=== PATIENT | female | born 1955 | race Caucasian/White ===

== ENCOUNTER 2017-07-13 09:21 | Outpatient (RCR) | payer MEDICARE, BC ==
[2017-05-03 09:17] VITALS: BP 130/84
[2017-05-03] MEDS: LIDOCAINE/SOD BICARB 8.4% SYR ID PRN (09:28)
[2017-05-03] MEDS: NS(*) 0.9% 100 ML BAG 100 ML IVPB PRN (09:28)
[2017-05-03 09:37] LABS: PLATELET COUNT, AUTOMATED 216 K/uL (150-450)
[2017-06-01 11:00] VITALS: BP 176/87
[2017-06-01 11:26] LABS: PLATELET COUNT, AUTOMATED 221 K/uL (150-450)
[2017-06-01] MEDS: LIDOCAINE/SOD BICARB 8.4% SYR ID PRN (11:27)
[2017-06-01] MEDS: NS(*) 0.9% 100 ML BAG 100 ML IVPB PRN (11:28)
[2017-06-29] MEDS: NS(*) 0.9% 100 ML BAG 100 ML IVPB PRN (09:12)
[2017-06-29] MEDS: LIDOCAINE/SOD BICARB 8.4% SYR ID PRN (09:12)
[2017-06-29 09:27] LABS: PLATELET COUNT, AUTOMATED 228 K/uL (150-450)
[2017-06-29 09:28] VITALS: BP 135/80
[2017-07-06 08:38] VITALS: BP 146/86
[2017-07-06 08:40] LABS: PLATELET COUNT, AUTOMATED 200 K/uL (150-450)
[~2017-07-13] VITALS: Ht 160 cm; Wt 57.7 kg
[~2017-07-13 09:21] MED LIST: ABA250I IVPB; ABATACEPT 250 MG SDV 750 MG in NS(*) 0.9% 100 ML BAG 100 ML IVPB ONE; ACT PO; AMIT75TA42 PO; AMLO-98 PO; ASPI-715 PO; BENACAR PO; CALC-756 PO; CALCIUM CITRATE PO; CLON-327 PO; CLON1PAT19 PO; DEXTROSE 5%(*) 100 ML BAG 100 ML IVPB PRN; DOXA1TAB38 PO; EFFEXOR; EPIN0.3P14 IM; EPIN0.3P15 IM; FOL1 PO; FOLI0.4T56 PO; FOLIC ACID; FURO-45 PO; FURO20TA19 PO; GLUC750T10 PO; IPRA4AER IH; LAMI1TAB PO; LIS20 PO; LORA-629 PO; LORA10TA2 PO; MELO-149 PO; MET1000I IJ; METF-420 PO; METHOTREX; MOMR; MON10 PO; MULT-1 PO; MULT1TAB54 PO; NEBI20TA4 PO; OLME40TA17 PO; PRE10 PO; PRE20 PO; PRE5 PO; PRED-420 PO; PRED1DRO2 OP; RAN150 PO; TRAM-420 PO; VENL150C61 PO; VITA1CAP46 PO; [UNRECOGNIZED DRUG - CODE] PO; [UNRECOGNIZED DRUG - CODE] PO
[2017-07-13 09:28] VITALS: BP 127/76
--- NOTE | 2017-07-13 17:19 | ONCOLOGY FOLLOW UP NOTE ---
EVENT DATE: July 13, 2017 DIAGNOSES 1. Iron deficiency anemia. 2. Iron malabsorption due to gastric bypass surgery. 3. Hypertension. 4. Rheumatoid arthritis. 5. Asthma. 6. Depression. CHIEF COMPLAINT The patient is here today for followup of her iron deficiency anemia due to iron malabsorption after gastric bypass surgery. HEMATOLOGY HISTORY Genie Montiel is a 61-year-old female with a history of Rheumatoid arthritis and treatment with weekly methotrexate and Rituximab twice yearly. She also has a history of gastric bypass surgery done in 2000. Patient was found to have microcytic anemia. Her CBC on October 23, 2012 revealed normal white blood cell and platelets, but hemoglobin was 10.1 and hematocrit 32.7. MCV was 77.7. Her vitamin B12 level was high at 2,576 and folate level was also high, more than 48. Serum ferritin was low at 6, serum iron was 32, and TIBC was 445 with iron saturation of 7.2%. Patient received intravenous iron supplement in the form of Ferrlecit 125 mg weekly for 8 weeks with normalization of her iron studies. HISTORY OF PRESENT ILLNESS Patient is here today for followup of her iron deficiency anemia due to malabsorption from gastric bypass surgery. She is complaining of joint pains all over, which is chronic for her. She has also neuropathy with tingling and numbness in the hands and feet. Other than that she is really doing very well. PAST MEDICAL HISTORY 1. Hypertension 2. Rheumatoid arthritis, since 2000 3. Anemia 4. Asthma PAST SURGICAL HISTORY 1. Gastric bypass surgery, 2000 2. Carpal tunnel release, bilaterally 3. Tonsillectomy, as a child 4. Left hand surgery SOCIAL HISTORY Patient is with children. 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 No abuse of drugs, alcohol, or tobacco. FAMILY HISTORY Father with colon cancer at age of 73. Mother had melanoma. CURRENT MEDICATIONS 1. Tramadol 50 mg one to two tablets every four to six hours p.r.n. for pain. 2. Methotrexate 60 gm injection once a week. 3. Prednisone 20 mg daily. 4. Bystolic 40 mg daily. 5. Multivitamins one tablet daily. 6. Vitamin D one capsule daily. 7. Loratadine 10 mg daily. 8. Doxazosin 2 mg daily. 9. Clonidine 1 mg daily, four daily. 10. Lasix 10 mg daily. 11. Salicylate 750 mg twice daily. 12. Calcium citrate 200 mg daily. 13. Folic acid 1 mg daily. 14. Effexor XR 225 mg orally daily. 15. Epinephrine 0.3 mg syringe pen injection p.r.n. 16. Elavil 75 mg daily. 17. Pred Forte eye drops twice daily. 18. Lasix 20 mg daily. 19. Metformin 1000 mg twice daily. 20. Orencia IV. ALLERGIES AMOXICILLIN, CAUSES ITCH AND RASH BENICAR, CAUSES ANAPHYLAXIS LISINOPRIL, CAUSES ANAPHYLAXIS MORPHINE, CAUSES ITCH AND RASH NAPROXEN, CAUSES ITCH AND RASH SULFA, CAUSES ITCH AND RASH TYLENOL, CAUSES ITCH AND RASH ENBREL, CAUSES ITCH AND RASH REVIEW OF SYSTEMS CONSTITUTIONAL: No appetite or weight change. No fever, chills or sweating. No recent infection. HEENT: Ears: No tinnitus or hearing problem. Nose: No nasal discharge or epistaxis. Throat: No sore throat or mouth ulcers. Eyes: No diplopia or visual changes. RESPIRATORY: No shortness of breath. No cough, expectoration or hemoptysis. CARDIOVASCULAR: No chest pain, orthopnea, or paroxysmal nocturnal dyspnea (PND) . No edema. No palpitations. GASTROINTESTINAL: No nausea or vomiting. No diarrhea or constipation. No change in bowel movements. No heartburn or swallowing difficulties. No abdominal pain. No jaundice. No hematemesis, melena or rectal bleeding. GENITOURINARY: No hematuria or dysuria. MUSCULOSKELETAL: The patient has generalized joint pains. NEUROLOGICAL: She has tingling and numbness in the hands and feet. HEMATOLOGIC/LYMPHATIC: She is weak, tired and fatigued. SKIN: No skin rash or lumps. PSYCHIATRIC: No anxiety or depression. PHYSICAL EXAMINATION GENERAL: Well-developed female in no acute distress. VITAL SIGNS: Blood pressure 127/76, pulse 74 per minute, respirations 16 per minute, temperature 97.2, pulse ox 95% on room air. HEENT: Head: Atraumatic. No sinus tenderness to palpation. Eyes: No icterus or conjunctivitis. Mouth and throat: No oral thrush or mucositis. NECK: Supple. No cervical or supraclavicular lymphadenopathy. LUNGS: Clear to auscultation and percussion bilaterally. HEART: Regular rate and rhythm. No gallops, murmurs, clicks, or rubs. ABDOMEN: Soft and lax. No tenderness. No hepatosplenomegaly. No masses. EXTREMITIES: No cyanosis, clubbing, or edema. LYMPHATICS: No peripheral lymphadenopathy. NEUROLOGICAL: Conscious, alert, and oriented times three. No focal motor or sensory deficits. PSYCHIATRIC: Mood and affect appear normal. SKIN: No skin rash, bruise, or purpuric eruption. DIAGNOSTIC DATA CBC shows white count 5.8, hemoglobin 13.1, hematocrit 38.3, platelets 200,000. Ferritin is 279. Serum iron is 84, TIBC is 238, iron saturation 35.3%. ASSESSMENT 1. Iron deficiency anemia secondary to iron malabsorption from gastric bypass surgery. Patient received iron supplementation in the past in the form of Ferrlecit and she did fine with that, did not have a reaction. In December 2016, she had Injectafer weekly for two weeks, but she developed light pharyngeal obstruction with her treatment, but patient has had very good response to the treatment. Her current iron studies are really very good. I am planning to see her again in four months with CBC, iron studies with ferritin, and if the patient would need iron supplementation in the future, I will use Ferrlecit rather than Injectafer. 2. Iron malabsorption due to gastric bypass surgery. 3. Hypertension on treatment. 4. Rheumatoid arthritis since 2000. 5. Depression on treatment. PLAN 1. Continue followup. 2. Patient is to return in four months with CBC and iron studies with ferritin. 4. Patient is to contact us for any new concerns or complaints. GUTH[facility] CORTLAND MEDICAL CENTERHailey
[2017-07-28] MEDS ORDERED: PANT20TA27 PO (14:55)
[2017-08-01] MEDS ORDERED: DOCU240C84 PO (08:56)
[2017-08-01] MEDS ORDERED: OXYC5TAB38 PO (09:01)
== END 2017-07-31 ==
LOC: ONC 09:21
PROVIDERS: ATTEND Internal Medicine Rheumatology
DX: D50.9 Iron deficiency anemia, unspecified (principal); M06.9 Rheumatoid arthritis, unspecified; E11.9 Type 2 diabetes mellitus without complications; I10 Essential (primary) hypertension; R60.9 Edema, unspecified; G62.9 Polyneuropathy, unspecified; Z79.899 Other long term (current) drug therapy; R53.1 Weakness; R53.83 Other fatigue
CPT/HCPCS: 36415; 82728; 83540; 83550; 85025; 96365; G0463; J0129; J7050; 82040; 82247; 82310; 82374; 82435; 82565; 82947; 84075; 84132; 84155; 84295; 84450; 84460; 84520; 99212

== ENCOUNTER → 2017-07-25 | Outpatient (CLI) | payer MEDICARE, BC ==
[~2017-07-25] MED LIST changes: -ABATACEPT 250 MG SDV 750 MG in NS(*) 0.9% 100 ML BAG 100 ML IVPB ONE; -DEXTROSE 5%(*) 100 ML BAG 100 ML IVPB PRN
[2017-07-25 12:28] LABS: PLATELET COUNT, AUTOMATED 191 K/uL (150-450)
--- NOTE | 2017-07-25 12:46 | EKG ---
FACILITY: [facility] PATIENT NAME: RONDA KOEHLER : [id number] MR: [id number] V: [id number] EXAM DATE: ORDERING PHYSICIAN: YUDY FARRAR TECHNOLOGIST: DENVER Scanlon Reason : PREOP-NECK Blood Pressure : / mmHG Vent. Rate : 057 BPM Atrial Rate : 057 BPM P-R Int : 132 ms QRS Dur : 102 ms QT Int : 432 ms P-R-T Axes : -19 -05 023 degrees QTc Int : 420 ms Sinus bradycardia Poor R wave progressiona nteriorly When compared with ECG of 05-APR-2017 10:38, No significant change was found Confirmed by DYLON PEREA ([id number]) on 07/26/2017 3:39:46 PM Referred By: LENI Confirmed By:DYLON PEREA
== END ==
LOC: LAB 12:02
PROVIDERS: ATTEND Nurse Practitioner Family
DX: Z01.810 Encounter for preprocedural cardiovascular examination (principal); R32 Unspecified urinary incontinence; R00.1 Bradycardia, unspecified; R94.31 Abnormal electrocardiogram [ECG] [EKG]
CPT/HCPCS: 36415; 81001; 82040; 82247; 82310; 82374; 82435; 82565; 82947; 83036; 84075; 84132; 84155; 84295; 84450; 84460; 84520; 85025; 93005

== ENCOUNTER 2017-07-31 00:16 | Observation (INO) | payer MEDICARE, BC ==
[2017-07-31] VITALS (21 sets, daily range): BP systolic 127–169; BP diastolic 65–86
[~2017-07-31] VITALS: Ht 160 cm; Wt 56.7 kg
[~2017-07-31 00:16] MED LIST changes: +PANT20TA27 PO
[2017-07-31] MEDS ORDERED: HYDROCORTISONE 100 MG/2 ML IVP ONE (06:00)
[2017-07-31] MEDS ORDERED: MIDAZOLAM 2 MG/2 ML VIAL IVP PRN (06:00)
[2017-07-31] MEDS ORDERED: CLINDAMYCIN(*) 900 MG/NS 50 ML 50 ML IVPB ONE (06:00)
[2017-07-31] MEDS ORDERED: LIDOCAINE/SOD BICARB 8.4% SYR ID ONE (06:00)
[2017-07-31] MEDS ORDERED: NORMOSOL R SOLN(*) 1000 ML BAG 1,000 ML IV PRN (06:00)
[2017-07-31] MEDS ORDERED: THROMBIN (BOVINE) 20,000 UNIT VIAL ONE (06:23)
[2017-07-31] MEDS ORDERED: PROPOFOL EMUL(*) 10MG/ML 20 ML 20 ML ONE (06:37)
[2017-07-31] MEDS ORDERED: LIDOCAINE MPF 1% 5 ML VIAL ONE (06:37)
[2017-07-31] MEDS ORDERED: DEXAMETHASONE SOD 4 MG/ML VIAL ONE (06:37)
[2017-07-31] MEDS ORDERED: ROCURONIUM BROM 10 MG/ML 10 ML ONE (06:37)
[2017-07-31] MEDS ORDERED: SUGAMMADEX SOD 200 MG/2 ML SDV ONE ×2 (06:37→07:15)
[2017-07-31] MEDS ORDERED: ONDANSETRON 4 MG/2 ML VIAL ONE (06:37)
[2017-07-31] MEDS ORDERED: fentaNYL CITR 250 MCG/5 ML AMP ONE (06:37)
[2017-07-31] MEDS ORDERED: KETAMINE HCL 200 MG/20 ML MDV ONE (06:41)
[2017-07-31] MEDS ORDERED: NS(*) 0.9% 500 ML BAG 500 ML ONE (06:41)
[2017-07-31] MEDS ORDERED: HYDROmorphone HCL 2 MG/ML SDV ONE (06:42)
[2017-07-31] MEDS ORDERED: PROPOFOL(*)1000 MG/100 ML VIAL 200 ML ONE (06:46)
[2017-07-31] MEDS ORDERED: SUCCINYLCHOL CHL 100MG/5ML SYR IVP ONE (07:15)
[2017-07-31] MEDS ORDERED: PHENYLEPHRINE/NS/PF 0.4MG/10ML ONE (07:15)
[2017-07-31] MEDS ORDERED: NS 0.9% 20 ML SDV 20 ML ONE (07:51)
[2017-07-31] MEDS ORDERED: MEPERIDINE 50 MG/ML SYR ONE (09:56)
[2017-07-31] MEDS ORDERED: fentaNYL CITR 100 MCG/2 ML AMP ONE (10:19)
[2017-07-31] MEDS ORDERED: AMITRIPTYLINE HCL 25 MG TAB PO ONE (10:45)
[2017-07-31] MEDS ORDERED: diphenhydrAMINE 25 MG CAP PO PRN (11:00)
[2017-07-31] MEDS ORDERED: DIAZEPAM 5 MG TAB PO PRN (11:00)
[2017-07-31] MEDS ORDERED: MAGNESIUM HYDROXIDE* 30ML UDCP PO PRN (11:00)
[2017-07-31] MEDS ORDERED: APAP/HYDROCODONE 325/5 TAB PO PRN (11:00)
[2017-07-31] MEDS ORDERED: ACETAMINOPHEN 500 MG TAB PO PRN (11:00)
[2017-07-31] MEDS ORDERED: LR(*) 1000 ML BAG 1,000 ML IV PRN (11:00)
[2017-07-31] MEDS ORDERED: HYDROmorphone HCL 2 MG/ML SDV IVP PRN (11:00)
[2017-07-31] MEDS ORDERED: FLUSH 10 ML SYR IVP PRN (11:00)
[2017-07-31] MEDS ORDERED: ACETAMINOPHEN(*)1000 MG/100 ML 100 ML IVPB PRN (11:00)
[2017-07-31] MEDS ORDERED: BISACODYL 10 MG SUPP PR PRN (11:00)
[2017-07-31] MEDS ORDERED: ONDANSETRON 4 MG/2 ML VIAL IVP PRN (11:00)
--- NOTE | 2017-07-31 11:30 | RADIOLOGY IMAGING REPORT ---
FACILITY: [facility] PATIENT NAME: Genie Montiel : 1955 MR: [id number] V: [id number] EXAM DATE: ORDERING PHYSICIAN: AUBRIE MONTIEL TECHNOLOGIST: Location: [facility] Patient: Genie Montiel : 1955 Visit/Account:[id number] Date of Sevice: 07/31/2017 Exam type: CERVICAL SPINE 1 VIEW History: ANTERIOR C5-6 DISCECTOMY, C5-6 FUSION Comparison: March 31, 2016. Findings: Two intraoperative cross table lateral views of the cervical spine are submitted. On the first image a metallic probe projecting over the anterior aspect of the C4 and C5 vertebral bodies. The final i mage demonstrates anterior fusion at C5-6 with metallic hardware. There is a 3 mm anterior listhesis of C4 with respect to C5. An endotracheal tube incidentally noted IMPRESSION: 1. As above Report Dictated By: Hali Bradley MD at 07/31/2017 11:22 AM Report E-Signed By: Hali Bradley MD at 07/31/2017 11:25 AM WSN:[id number]
[2017-07-31] MEDS ORDERED: NALOXONE HCL 0.4 MG/ML VIAL IVP PRN (12:10)
[2017-07-31] MEDS ORDERED: INSULIN HUM LISPRO 100 UN/ML 3 ML VIAL SUBQ PRN (12:30)
--- NOTE | 2017-07-31 12:49 | Hospitalist Progress Note ---
Subjective Progress Notes Subjective Patient seen post-op. Reviewed PMHx (type 2 DM, HTN, RA, depression) and medications (prednisone, Bystolic, doxazosin, clonidine, MTX, Orencia, metformin , Effexor, amitriptyline). At present, she is somnolent with occasional myoclonic jerks. She did receive fentanyl 100mcg just prior to coming to the floor. She also received Sugammadex for reversal of her paralytic agent. Her glucose is 185. We did give her Narcan 0.2mg with some improvement in her level of consciousness. She is able to answer some simple questions. Physical Exam Vital Signs Date Time Temp Pulse Resp B/P (MAP) Pulse Ox O2 Delivery O2 Flow Rate FiO2 07/31/17 12:30 99.3 89 18 139/73 (95) 93 Oxy Mask 7.0 Intake and Output 08/01/17 07:00 Intake Total 1750 ml Balance 1750 ml Intake IV Total 1750 ml General Appearance: Other (somnolent with occasional myoclonic jerks) Neuro: Other (she is able to move all four extremities upon command) Cardiovascular: Regular Rate and Rhythm Respiratory: Clear to Auscultation GI: Soft and Non-Tender Extremities: Warm, Perfused Assessment and Plan Problems: (1) S/P cervical spinal fusion Status: Acute Assessment & Plan: She appears to have some prolonged sedation related to anesthesia, pain medications, amitriptyline. She did respond fairly well to low dose Narcan. Will watch closely for next few hours. She will need close monitoring while on any pain meds post-op. (2) Type 2 diabetes mellitus Status: Chronic Assessment & Plan: Will place on ADA diet, resume metformin tomorrow, check fingerstick glucoses and use SSI as needed. (3) Rheumatoid arthritis Status: Chronic Assessment & Plan: She has been managed with Orencia, MTX, and chronic prednisone. Will give her stress dose steroids with Solu-Cortef for next 24-48 hours then resume her prednisone. (4) Hypertension Status: Chronic Assessment & Plan: Will resume her Bystolic, clonidine, doxazosin with BP parameters. (5) Depression Status: Chronic Assessment & Plan: Continue Effexor and amitriptyline. DYLON PEREA MD Jul 31, 2017 12:49
[2017-07-31] MEDS: cloNIDine HCL 0.1 MG TAB PO SCH ×3 (13:00→20:42)
[2017-07-31] MEDS: oxyCODONE HCL 5 MG CAP PO PRN ×2 (14:59→20:57)
[2017-07-31] MEDS: CLINDAMYCIN 900 MG/6 ML 900 MG in DEXTROSE 5% 50 ML BAG 50 ML IVPB SCH (17:42)
[2017-07-31] MEDS: HYDROCORTISONE 100 MG/2 ML IVP SCH (17:42)
[2017-07-31] MEDS: PANTOPRAZOLE SOD 20 MG TABEC PO SCH (20:42)
[2017-07-31] MEDS: NEBIVOLOL HCL 5 MG TAB PO SCH (20:42)
[2017-07-31] MEDS: DOCUSATE SODIUM 100 MG CAP PO SCH (20:42)
[2017-07-31] MEDS ORDERED: DOXAZOSIN MESYLATE 2 MG TAB PO SCH (21:00)
[2017-08-01 00:14] VITALS: BP 161/86
[2017-08-01] MEDS: CLINDAMYCIN 900 MG/6 ML 900 MG in DEXTROSE 5% 50 ML BAG 50 ML IVPB SCH ×2 (00:18→09:19)
[2017-08-01] MEDS: oxyCODONE HCL 5 MG CAP PO PRN ×3 (00:18→08:36)
[2017-08-01] MEDS: BENZOCAINE/MENTHOL 1 EACH LOZG PO PRN ×2 (00:28→05:18)
[2017-08-01 05:08] VITALS: BP 159/89
[2017-08-01] MEDS: HYDROCORTISONE 100 MG/2 ML IVP SCH (05:18)
[2017-08-01 06:09] LABS: PLATELET COUNT, AUTOMATED 130 K/uL (150-450)
--- NOTE | 2017-08-01 06:32 | Hospitalist Progress Note ---
Subjective Progress Notes Subjective She reports "heavy" feeling and diminished rn supplemental strength left upper extremity/ hand. No CP/SOB/N/V. Physical Exam Vital Signs Date Time Temp Pulse Resp B/P (MAP) Pulse Ox O2 Delivery O2 Flow Rate FiO2 08/01/17 05:08 97.6 70 16 159/89 (112) Nasal Cannula 1.0 08/01/17 03:53 88 General Appearance: Alert, Awake Neck: Other (surigcal site dressed/drain in place) Cardiovascular: Regular Rate and Rhythm Respiratory: Clear to Auscultation Result Diagram: 08/01/17 0601 08/01/17 0540 Assessment and Plan Problems: (1) S/P cervical spinal fusion Status: Acute Assessment & Plan: She had some prolonged sedation related to anesthesia, pain medications, amitriptyline, but did respond fairly well to low dose Narcan. This appears to be resolved. Continue as per Dr. Montiel. (2) Type 2 diabetes mellitus Status: Chronic Assessment & Plan: She is on an ADA diet, metformin, fingerstick glucoses with SSI as needed. (3) Rheumatoid arthritis Status: Chronic Assessment & Plan: She has been managed with Orencia, MTX, and chronic prednisone. We did give her stress dose steroids with Solu-Cortef for approximately 24 hours post-op. Will resume her prednisone. (4) Hypertension Status: Chronic Assessment & Plan: Will resume her Bystolic, clonidine, doxazosin with BP parameters. (5) Depression Status: Chronic Assessment & Plan: Continue Effexor and amitriptyline. Exam Sepsis Risk: No Definite Risk DYLON PEREA MD Aug 01, 2017 06:32
[2017-08-01 07:34] VITALS: BP 158/87
[2017-08-01] MEDS ORDERED: metFORMIN HCL 500 MG TAB PO SCH (08:00)
--- NOTE | 2017-08-01 08:18 | OPERATIVE REPORT 1 ---
EVENT DATE: July 31, 2017 SURGEON: Mack Montiel MD ANESTHESIOLOGIST: Cuco Martinez MD ANESTHESIA: General endotracheal. [employer]: MAGO Hendrickson, LAB MANAGER PREOPERATIVE DIAGNOSIS C5-C6 cord compression secondary to degenerative disk disease with cervical spondylotic myelopathy. POSTOPERATIVE DIAGNOSIS C5-C6 cord compression secondary to degenerative disk disease with cervical spondylotic myelopathy. PROCEDURE PERFORMED C5-C6 anterior cervical discectomy and fusion. IV FLUIDS 900 mL. ESTIMATED BLOOD LOSS 25 mL. IMPLANTS A 6 mm lordotic size small titanium interbody spacer from [employer] and two 3.5 x 14 mm fixation screws also from [employer] plus 1 mL of Vi-Bone. SPECIMENS None. DRAINS A 10 Hebrew round Edgar-Saenz drain through the neck. COMPLICATIONS None. DISPOSITION Post anesthesia care unit. INDICATIONS FOR SURGERY Ms. Montiel is a 61-year-old female who presented with a chief complaint of bilateral upper extremity weakness, loss of fine motor function and difficulties with balance in her lower extremities. Her physical examination was significant for multiple long tract findings including hyperactive deep tendon reflexes, positive Guerra sign bilaterally and difficulty with tandem gait testing. Her MRI showed significant compression on the cervical spinal cord at the C5-C6 level secondary to a large broad-based disk bulge. Secondary to these symptoms and findings, Ms. Montiel was offered and elected to undergo C5 -C6 anterior cervical discectomy and fusion to remove the pressure from her cord , prevent progression of her myelopathy, and hopefully restore some of her premorbid function. Prior to surgery, I explained in detail to the patient possible risks pertaining to spinal surgery. This includes the risks of bleeding, infection, neurologic injury, damage to surrounding structures, blood vessel injury, spinal cord injury, injury to nerve roots, persistent and/or worsening pain, spinal fluid leak, sexual dysfunction, autonomic nervous system dysfunction and other unforeseen medical and surgical complications. Secondary to the anterior approach to the cervical spine, we also discussed potential risks pertaining to that specific approach, including swallowing, difficulties with possible need for tube feeding, hoarseness and voice changes, recurrent laryngeal nerve root injury, injury to the esophagus or trachea, etc. We also discussed the values of neurophysiologic monitoring. I explained to her that this is not an infallible monitoring method, and that at times, monitoring may cease to be informative due to loss of signals in the absence of a correctable maneuver. In this situation, the surgeon is blinded to any adverse changes, and is unable to make any changes to alter this course. Throughout the procedure, there were no significant changes in neurophysiologic monitoring. DESCRIPTION OF PROCEDURE On the date of surgery, the patient was met in the preoperative hold area and all questions were answered. The operative site was identified and marked by myself. The patient was then brought in good condition, and after placement of an arterial line and succumbing to anesthesia, the patient was prepped and draped in the supine position on a standard OR bed. The arms were loosely secured at the sides, and the shoulders retracted downward to provide good access to the anterior cervical spine. The patient was then prepped and draped in standard sterile orthopedic fashion. All bony protuberances were padded in standard fashion. Care was taken to maintain appropriate perfusion pressures during anesthesia. Antibiotics were administered according to the appropriate timing schedule. At the conclusion of the procedure, sponge and needle counts were correct x 2. Prior to surgery, a final time out was undertaken by members of the operating team to confirm correct patient, correct level and correct surgery. A transverse incision was then made over the anterior neck. Sharp dissection was taken down through the platysma, and the interval between sternocleidomastoid and anterior structures was defined. The carotid vessels were palpated, and blunt dissection was carried out medially to the carotid sheath, exposing the anterior aspect of the cervical spine. A lateral radiograph was obtained to confirm correct levels. Soft tissues including the longus colli muscles were elevated off the anterior cervical spine in a subperiosteal manner. Self retaining retractors were then placed. The outer annulus of the C5-C6 disk was incised utilizing a knife, and the anterior annulus and portions of the nucleus were removed with the pituitary rongeur. Progressively smaller curettes were used to move posteriorly, removing disk material out to the width of the uncovertebral joints bilaterally. Cloward spreaders were then placed and distraction applied across the disk space. There were no changes in neurophysiologic monitoring. A high speed nakul was used to resect the uncovertebral joints as necessary, and take down the posterior osteophyte. I then carefully dissected through the posterior annulus and the posterior longitudinal ligament using a combination of forward angled curettes and a nerve hook. Once this was accomplished, the entire posterior longitudinal ligament was taken down with a 1 and 2 mm Kerrison punch, and posterior osteophytes resected utilizing a curved curette and a Kerrison rongeur. Once I was convinced that there was no persistent compression of the spinal cord, the entire wound was irrigated with copious sterile saline solution. A size 6 rasp was selected and used to prep the end plates and the interbody space more thoroughly. I ensured that there was good bleeding from the end plates, both above and below the interspace. We then chose a size 6 small interbody implant from [employer], and this was packed with Vi-Bone bone graft. This was then inserted in the interbody space, and a good fit was noted. The awl was then used through the integrated holes in the implant to puncture the end plates of the vertebral bodies above and below. 3.5 mm x 14 mm screws were then placed through the implant into the vertebral bodies. A lateral radiograph was obtained that showed excellent positioning of the implant. The wound was then irrigated and closed in layers using interrupted sutures for the platysma, inverted interrupted sutures for the subcutaneous tissue and then a running subcuticular skin stitch. A drain was left deep to the platysma. Sponge and needle counts were correct x 2. POSTOPERATIVE CARE PLAN Ms. Montiel will remain in the hospital overnight. She will be discharged home after pulling her drain tomorrow morning, and follow up with me in 2 weeks' time for a wound check and examination. KENDRA
[2017-08-01] MEDS: cloNIDine HCL 0.1 MG TAB PO SCH (08:36)
[2017-08-01] MEDS: DOCUSATE SODIUM 100 MG CAP PO SCH (08:36)
[2017-08-01] MEDS: NEBIVOLOL HCL 5 MG TAB PO SCH (08:36)
[2017-08-01] MEDS ORDERED: DOCU240C84 PO (08:56)
[2017-08-01] MEDS ORDERED: VENLAFAXINE XR 75 MG CAPCR PO SCH (09:00)
[2017-08-01] MEDS ORDERED: OXYC5TAB38 PO (09:01)
[2017-08-01] MEDS: PANTOPRAZOLE SOD 20 MG TABEC PO SCH (09:50)
[2017-08-01] MEDS ORDERED: AMITRIPTYLINE HCL 25 MG TAB PO SCH (21:00)
[2017-08-01] MEDS ORDERED: predniSONE 5 MG TAB PO SCH (21:00)
== END 2017-08-01 08:55 | disposition home or self-care (01) ==
LOC: OR 00:16 → MED 11:30
PROVIDERS: ADMIT Orthopaedic Surgery; ATTEND Orthopaedic Surgery
DX: M50.022 Cervical disc disorder at C5-C6 level with myelopathy (principal); G95.20 Unspecified cord compression; E11.9 Type 2 diabetes mellitus without complications; I10 Essential (primary) hypertension
CPT/HCPCS: 22856; 36415; 36416; 72020; 82948; 85025; 96372; 97161; A9270; C1713; G0378; J0330; J1100; J1170; J1720; J1815; J2001; J2175; J2250; J2310; J2370; J2405; J2704; J3010; J3490; J7040; J7050; J7060; J7120; 82040; 82247; 82310; 82374; 82435; 82565; 82947; 84075; 84132; 84155; 84295; 84450; 84460; 84520

== ENCOUNTER → 2017-08-18 | Outpatient (CLI) | payer MEDICARE, BC ==
[~2017-08-18] MED LIST changes: +DOCU240C84 PO; +OXYC5TAB38 PO
--- NOTE | 2017-08-18 09:36 | RADIOLOGY IMAGING REPORT ---
FACILITY: [facility] [place] PATIENT NAME: Genie Montiel : 1955 MR: [id number] V: [id number] EXAM DATE: ORDERING PHYSICIAN: YUDY FARRAR TECHNOLOGIST: Location: [facility] Patient: Genie Montiel : 1955 Visit/Account:[id number] Date of Sevice: 08/18/2017 DEXA Scan Clinical history: Screening. Comparison: 07/21/2015. LUMBAR SPINE: The bone mineral density (BMD) measured from L1-L4 correlates with a Z-score of 0.2 and a T-score of -1.2 which is mildly osteopenic as defined by the World Health Organization. T he corresponding risk of fracture in the lumbar spine is double compared with a young adult reference population. This value has decreased by 0.5 % since the prior study. More than 5% change is consid ered significant. HIP: Bone mineral density (BMD) measured in the Left Total Hip region correlates with a Z-score of 0.3 and a T-score of -0.8. The T-score of the femoral neck is -1.7. The lower of the two T-scores is osteopenic as defined by the World Health Organization. Th e corresponding risk of fracture in the hip is moderately increased compared with a young adult refer ence population. This value has decreased by 5 % since the prior study. More than 5% change is cons idered significant. Bone mineral density (BMD) measured in the Left Femoral Neck region measures 0.808 g/cm?. IMPRESSION: 1. Lumbar spine: Mildly osteopenic. There has been no significant change in the bone mineral densi ty since the previous exam. 2. Left Total Hip: Osteopenic. There has been significant decrease in the bone mineral density sinc e the previous exam. The next DEXA scan of this patient should include the following sites: L1-L4 and Left hip. FRAX? WHO Fracture Risk Assessment Tool link: <http://www.shef.ac.uk/FRAX/tool.jsp?locationValue=9> PLEASE NOTE: 1) The World Health Organization defines low BMD as follows: T-score Normal > -1 Osteopenia < -1 and > -2.5 Osteoporosis < -2.5 without fractures Established osteoporosis < -2.5 with fractures 2) In general, you may wish to consider: Diagnosis Treatment Follow-up DEXA Normal BMD Prevention 2-3 years Osteopenia Prevention/therapy 1-2 years Osteoporosis Therapy Yearly 3) Fracture risk estimated from the T-score is more accurate for vertebral fractures (often spontane ous) than for hip fractures. Report Dictated By: Adolfo Dacosta MD at 08/18/2017 9:27 AM Report E-Signed By: Adolfo Dacosta MD at 08/18/2017 9:31 AM WSN:[id number]
--- NOTE | 2017-08-18 10:27 | RADIOLOGY IMAGING REPORT ---
FACILITY: [facility] [place] PATIENT NAME: RONDA KOEHLER : [id number] MR: [id number] V: [id number] EXAM DATE: [id number] ORDERING PHYSICIAN: YUDY FARRAR TECHNOLOGIST: Rika Mora PROCEDURE:BILATERAL DIGITAL SCREENING MAMMOGRAM WITH CAD ASSISTED INTERPRETATION & 3D TOMOSYNTHESIS COMPARISON:Prior mammograms 04/21/15 INDICATIONS:SCREENING FINDINGS: Moderately heterogeneous fibroglandular tissue is seen throughout the breasts. The parenchymal pattern has remained stable allowing for difference in mammographic technique & patient positioning. There is no evidence of malignant appearing mass, malignant appearing calcifications or other secondary sign of malignancy in either breast. DIAGNOSTIC CATEGORY 1--NEGATIVE. RECOMMENDATIONS: ROUTINE MAMMOGRAM AND CLINICAL EVALUATION. IMPRESSION: BIRADS 1: Negative No significant abnormality is seen Dictated by: Hali Bradley M.D. on 08/18/2017 at 9:52 Transcribed by: JOSEP on 08/18/2017 at 10:21 Approved by: Hali Bradley M.D. on 08/18/2017 at 10:26 [facility]
== END ==
LOC: MAMO 04:11
PROVIDERS: ATTEND Nurse Practitioner Family
DX: Z13.820 Encounter for screening for osteoporosis (principal); Z12.31 Encounter for screening mammogram for malignant neoplasm of breast; M85.88 Other specified disorders of bone density and structure, other site
CPT/HCPCS: 77063; 77067; 77080

== ENCOUNTER 2017-11-09 08:51 | Outpatient (RCR) | payer MEDICARE, BC ==
[2017-08-16 10:11] VITALS: BP 153/103
[2017-08-16 10:41] LABS: PLATELET COUNT, AUTOMATED 272 K/uL (150-450)
[2017-08-16] MEDS: LIDOCAINE/SOD BICARB 8.4% SYR ID PRN (11:48)
[2017-08-16] MEDS: NS(*) 0.9% 100 ML BAG 100 ML IVPB PRN (11:48)
[2017-08-16 11:56] VITALS: BP 156/90
[2017-09-20 10:11] VITALS: BP 160/88
[2017-09-20 10:27] LABS: PLATELET COUNT, AUTOMATED 223 K/uL (150-450)
[2017-09-20] MEDS: NS(*) 0.9% 100 ML BAG 100 ML IVPB PRN (10:32)
[2017-09-20] MEDS: LIDOCAINE/SOD BICARB 8.4% SYR ID PRN (10:32)
[2017-09-20 11:15] VITALS: BP 175/90
[2017-10-18 09:30] VITALS: BP 108/61
[2017-10-18] MEDS: LIDOCAINE/SOD BICARB 8.4% SYR ID PRN (10:05)
[2017-10-18] MEDS: NS(*) 0.9% 100 ML BAG 100 ML IVPB PRN ×2 (10:05→10:06)
[2017-11-06 09:22] VITALS: BP 122/71
[2017-11-06 09:33] LABS: PLATELET COUNT, AUTOMATED 202 K/uL (150-450)
[~2017-11-09 08:51] MED LIST changes: +ABATACEPT 250 MG SDV 750 MG in NS(*) 0.9% 100 ML BAG 100 ML IVPB ONE; +DEXTROSE 5%(*) 100 ML BAG 100 ML IVPB PRN; +IBAN150T3 PO; -METF-420 PO; +METF-421 PO
[2017-11-09 09:02] VITALS: BP 139/79
--- NOTE | 2017-11-09 17:00 | ONCOLOGY FOLLOW UP NOTE ---
EVENT DATE: November 09, 2017 DIAGNOSES 1. Iron deficiency anemia. 2. Iron malabsorption due to gastric bypass surgery. 3. Hypertension. 4. Rheumatoid arthritis. 5. Asthma. 6. Depression. CHIEF COMPLAINT The patient is here today for followup of her iron deficiency anemia due to iron malabsorption after gastric bypass surgery. HEMATOLOGY HISTORY Genie Montiel is a 61-year-old female with a history of Rheumatoid arthritis and treatment with weekly methotrexate and Rituximab twice yearly. She also has a history of gastric bypass surgery done in 2000. Patient was found to have microcytic anemia. Her CBC on October 23, 2012 revealed normal white blood cell and platelets, but hemoglobin was 10.1 and hematocrit 32.7. MCV was 77.7. Her vitamin B12 level was high at 2,576 and folate level was also high, more than 48. Serum ferritin was low at 6, serum iron was 32, and TIBC was 445 with iron saturation of 7.2%. Patient received intravenous iron supplement in the form of Ferrlecit 125 mg weekly for 8 weeks with normalization of her iron studies. HISTORY OF PRESENT ILLNESS Patient is here today for followup of her iron deficiency due to malabsorption from gastric bypass surgery. She is doing fine currently. She has generalized joint pains. She has tingling and numbness in her hands and feet and she is weak, tired and fatigued, but other than that her general condition is stable. PAST MEDICAL HISTORY 1. Hypertension 2. Rheumatoid arthritis, since 2000 3. Anemia 4. Asthma PAST SURGICAL HISTORY 1. Gastric bypass surgery, 2000 2. Carpal tunnel release, bilaterally 3. Tonsillectomy, as a child 4. Left hand surgery SOCIAL HISTORY Patient is with children. 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 No abuse of drugs, alcohol, or tobacco. FAMILY HISTORY Father with colon cancer at age of 73. Mother had melanoma. CURRENT MEDICATIONS 1. Tramadol 50 mg one to two tablets every four to six hours p.r.n. for pain. 2. Methotrexate 60 gm injection once a week. 3. Prednisone 20 mg daily. 4. Bystolic 40 mg daily. 5. Multivitamins one tablet daily. 6. Vitamin D one capsule daily. 7. Loratadine 10 mg daily. 8. Doxazosin 2 mg daily. 9. Clonidine 1 mg daily, four daily. 10. Lasix 10 mg daily. 11. Salicylate 750 mg twice daily. 12. Calcium citrate 200 mg daily. 13. Folic acid 1 mg daily. 14. Effexor XR 225 mg orally daily. 15. Epinephrine 0.3 mg syringe pen injection p.r.n. 16. Elavil 75 mg daily. 17. Pred Forte eye drops twice daily. 18. Lasix 20 mg daily. 19. Metformin 1000 mg twice daily. 20. Orencia IV. ALLERGIES AMOXICILLIN, CAUSES ITCH AND RASH BENICAR, CAUSES ANAPHYLAXIS LISINOPRIL, CAUSES ANAPHYLAXIS MORPHINE, CAUSES ITCH AND RASH NAPROXEN, CAUSES ITCH AND RASH SULFA, CAUSES ITCH AND RASH TYLENOL, CAUSES ITCH AND RASH ENBREL, CAUSES ITCH AND RASH REVIEW OF SYSTEMS CONSTITUTIONAL: No appetite or weight change. No fever, chills or sweating. No recent infection. HEENT: Ears: No tinnitus or hearing problem. Nose: No nasal discharge or epistaxis. Throat: No sore throat or mouth ulcers. Eyes: No diplopia or visual changes. RESPIRATORY: No shortness of breath. No cough, expectoration or hemoptysis. CARDIOVASCULAR: No chest pain, orthopnea, or paroxysmal nocturnal dyspnea (PND) . No edema. No palpitations. GASTROINTESTINAL: No nausea or vomiting. No diarrhea or constipation. No change in bowel movements. No heartburn or swallowing difficulties. No abdominal pain. No jaundice. No hematemesis, melena or rectal bleeding. GENITOURINARY: No hematuria or dysuria. MUSCULOSKELETAL: She has generalized joint pains. NEUROLOGICAL: She has tingling and numbness in the hands and feet. HEMATOLOGIC/LYMPHATIC: She is weak, tired and fatigued. SKIN: No skin rash or lumps. PSYCHIATRIC: No anxiety or depression. PHYSICAL EXAMINATION GENERAL: Well-developed female in no acute distress. VITAL SIGNS: Blood pressure 139/79, pulse 70 per minute, respirations 16 per minute, temperature 97.4, pulse ox 96% on room air. HEENT: Head: Atraumatic. No sinus tenderness to palpation. Eyes: No icterus or conjunctivitis. Mouth and throat: No oral thrush or mucositis. NECK: Supple. No cervical or supraclavicular lymphadenopathy. LUNGS: Clear to auscultation and percussion bilaterally. HEART: Regular rate and rhythm. No gallops, murmurs, clicks, or rubs. ABDOMEN: Soft and lax. No tenderness. No hepatosplenomegaly. No masses. EXTREMITIES: No cyanosis, clubbing, or edema. LYMPHATICS: No peripheral lymphadenopathy. NEUROLOGICAL: Conscious, alert, and oriented times three. No focal motor or sensory deficits. PSYCHIATRIC: Mood and affect appear normal. SKIN: No skin rash, bruise, or purpuric eruption. DIAGNOSTIC DATA CBC shows white count 6.3, hemoglobin 12.4, hematocrit 36.2, platelets 202,000. Chem panel normal except carbon dioxide 20, BUN 23, blood sugar 294. Iron studies showed serum iron 75, TIBC 274, iron saturation 27.4% and ferritin 233 all within the normal range. ASSESSMENT 1. Iron deficiency anemia secondary to malabsorption from gastric bypass surgery. Patient received iron supplementation in the past in the form of Ferrlecit and she did fine with that and did not have a reaction. In December 2016 , she had Injectafer weekly for two weeks, but she developed pharyngeal obstruction with her treatment, but she had very good response to her treatment. Her current iron studies are all within the normal range so there is no need for iron supplementation this visit. I am planning to see her again in six months with CBC, iron studies with ferritin. If the patient will need iron supplementation in the future I will use Ferrlecit rather than Injectafer. 2. Iron malabsorption due to gastric bypass surgery. 3. Hypertension on treatment. 4. Rheumatoid arthritis since 2000. 5. Depression on treatment. PLAN 1. Continue followup. 2. Patient is to return in six months with CBC and iron studies with ferritin. 4. Patient is to contact us for any new concerns or complaints. KENDRA
== END 2017-11-13 ==
LOC: ONC 08:51
PROVIDERS: ATTEND Internal Medicine Rheumatology
DX: D50.9 Iron deficiency anemia, unspecified (principal); Z98.84 Bariatric surgery status; I10 Essential (primary) hypertension; M06.9 Rheumatoid arthritis, unspecified; F32.9 Major depressive disorder, single episode, unspecified; R53.1 Weakness; R53.83 Other fatigue; Z79.899 Other long term (current) drug therapy
CPT/HCPCS: 36415; 82728; 83540; 83550; 85025; 85027; 96365; 96366; G0463; J0129; J7050; 82040; 82247; 82310; 82374; 82435; 82565; 82947; 84075; 84132; 84155; 84295; 84450; 84460; 84520; 99212

== ENCOUNTER → 2017-11-15 | Outpatient (CLI) | payer MEDICARE, BC ==
[~2017-11-15] MED LIST changes: -ABATACEPT 250 MG SDV 750 MG in NS(*) 0.9% 100 ML BAG 100 ML IVPB ONE; -DEXTROSE 5%(*) 100 ML BAG 100 ML IVPB PRN
== END ==
LOC: SPU 07:36
PROVIDERS: ATTEND Nurse Practitioner Family
DX: E11.9 Type 2 diabetes mellitus without complications (principal); I10 Essential (primary) hypertension; M06.9 Rheumatoid arthritis, unspecified
CPT/HCPCS: 82465; 83036; 83718; 84478

== ENCOUNTER 2018-02-07 08:54 | Outpatient (RCR) | payer MEDICARE, BC ==
[2017-11-15 09:41] VITALS: BP 123/69
[2017-11-15] MEDS: NS(*) 0.9% 100 ML BAG 100 ML IVPB PRN (10:01)
[2017-11-15] MEDS: LIDOCAINE/SOD BICARB 8.4% SYR ID PRN (10:01)
[2017-11-15 10:06] LABS: PLATELET COUNT, AUTOMATED 226 K/uL (150-450)
[2017-11-15 11:34] VITALS: BP 130/74
[2017-12-13 09:13] VITALS: BP 115/66
[2017-12-13 09:28] LABS: PLATELET COUNT, AUTOMATED 340 K/uL (150-450)
[2017-12-13] MEDS: NS(*) 0.9% 100 ML BAG 100 ML IVPB PRN (09:54)
[2018-01-10 09:40] VITALS: BP 100/66
[2018-01-10 09:42] LABS: PLATELET COUNT, AUTOMATED 239 K/uL (150-450)
[2018-01-10] MEDS: NS(*) 0.9% 100 ML BAG 100 ML IVPB PRN (10:35)
[2018-01-10] MEDS: LIDOCAINE/SOD BICARB 8.4% SYR ID PRN (10:35)
[2018-01-10 11:24] VITALS: BP 112/72
[~2018-02-07 08:54] MED LIST changes: +ABATACEPT 250 MG SDV 750 MG in NS(*) 0.9% 100 ML BAG 100 ML IVPB ONE; +DEXTROSE 5%(*) 100 ML BAG 100 ML IVPB PRN
[2018-02-07 09:00] VITALS: BP 136/71
[2018-02-07 09:20] LABS: PLATELET COUNT, AUTOMATED 286 K/uL (150-450)
[2018-02-07] MEDS: LIDOCAINE/SOD BICARB 8.4% SYR ID PRN (10:02)
[2018-02-07] MEDS: NS(*) 0.9% 100 ML BAG 100 ML IVPB PRN (10:03)
[2018-02-07] MEDS ORDERED: ABATACEPT 250 MG SDV 750 MG in NS(*) 0.9% 100 ML BAG 100 ML IVPB ONE (10:30)
[2018-02-07 11:10] VITALS: BP 120/85
== END 2018-02-12 ==
LOC: SPU 08:54
PROVIDERS: ATTEND Internal Medicine Rheumatology
DX: D64.9 Anemia, unspecified (principal)
CPT/HCPCS: 85025; 96365; J0129; J7050; 82040; 82247; 82310; 82374; 82435; 82465; 82565; 82947; 83036; 83718; 84075; 84132; 84155; 84295; 84450; 84460; 84478; 84520

== ENCOUNTER → 2018-02-21 | Outpatient (CLI) | payer MEDICARE, BC ==
[~2018-02-21] MED LIST changes: -ABATACEPT 250 MG SDV 750 MG in NS(*) 0.9% 100 ML BAG 100 ML IVPB ONE; -DEXTROSE 5%(*) 100 ML BAG 100 ML IVPB PRN
== END ==
LOC: LAB 08:12
PROVIDERS: ATTEND Nurse Practitioner Family
DX: E11.9 Type 2 diabetes mellitus without complications (principal)
CPT/HCPCS: 36415; 83036

== ENCOUNTER 2018-05-11 08:47 | Outpatient (RCR) | payer MEDICARE, BC ==
[2018-05-03 08:55] VITALS: BP 133/91
[~2018-05-11 08:47] MED LIST changes: -METF-421 PO; +METF-452 PO
[2018-05-11 09:01] VITALS: BP 169/86
[2018-05-11] MEDS ORDERED: SITA25TA PO (09:03)
--- NOTE | 2018-05-11 23:15 | ONCOLOGY FOLLOW UP NOTE ---
EVENT DATE: May 11, 2018 DIAGNOSES 1. Iron deficiency anemia. 2. Iron malabsorption due to gastric bypass surgery. 3. Hypertension. 4. Rheumatoid arthritis. 5. Asthma. 6. Depression. CHIEF COMPLAINT The patient is here today for followup of her iron deficiency anemia due to iron malabsorption after gastric bypass surgery. HEMATOLOGY HISTORY Genie Montiel is a 62-year-old female with a history of rheumatoid arthritis and treatment with weekly methotrexate and Rituximab twice yearly. She also has a history of gastric bypass surgery done in 2000. Patient was found to have microcytic anemia. Her CBC on October 23, 2012, revealed normal white blood cell and platelets, but hemoglobin was 10.1 and hematocrit 32.7. MCV was 77.7. Her vitamin B12 level was high at 2576, and folate level was also high, more than 48. Serum ferritin was low at 6, serum iron was 32, and TIBC was 445 with iron saturation of 7.2%. Patient received intravenous iron supplement in the form of Ferrlecit 125 mg weekly for eight weeks with normalization of her iron studies. HISTORY OF PRESENT ILLNESS Patient is here today for followup of her iron deficiency due to malabsorption from gastric bypass surgery. She is complaining of cough. She is having pain in her hands, feet, and hips. She has also neuropathy in her hands and feet, but her general condition is stable. PAST MEDICAL HISTORY 1. Hypertension. 2. Rheumatoid arthritis since 2000. 3. Anemia. 4. Asthma. PAST SURGICAL HISTORY 1. Gastric bypass surgery 2000. 2. Carpal tunnel release bilaterally. 3. Tonsillectomy as a child. 4. Left hand surgery. SOCIAL HISTORY Patient is with children. She is a retired cook, worked in a school. No abuse of drugs, alcohol, or tobacco. FAMILY HISTORY Father with colon cancer at age of 73. Mother had melanoma. CURRENT MEDICATIONS 1. Tramadol 50 mg one to two tablets every four to six hours p.r.n. for pain. 2. Methotrexate 60 gm injection once a week. 3. Prednisone 20 mg daily. 4. Bystolic 40 mg daily. 5. Multivitamins one tablet daily. 6. Vitamin D one capsule daily. 7. Loratadine 10 mg daily. 8. Doxazosin 2 mg daily. 9. Clonidine 0.1 mg four times daily. 10. Lasix 10 mg daily. 11. Salicylate 750 mg twice daily. 12. Calcium citrate 200 mg daily. 13. Folic acid 1 mg daily. 14. Effexor XR 225 mg orally daily. 15. Epinephrine 0.3 mg syringe pen injection p.r.n. 16. Elavil 75 mg daily. 17. Pred Forte eye drops twice daily. 18. Lasix 20 mg daily. 19. Metformin 1000 mg twice daily. 20. Orencia IV. ALLERGIES 1. AMOXICILLIN causes itch and rash. 2. BENICAR causes anaphylaxis. 3. LISINOPRIL causes anaphylaxis. 4. MORPHINE causes itch and rash. 5. NAPROXEN causes itch and rash. 6. SULFA causes itch and rash. 7. TYLENOL causes itch and rash. 8. ENBREL causes itch and rash. REVIEW OF SYSTEMS CONSTITUTIONAL: No appetite or weight change. No fever, chills, or sweating. No recent infection. HEENT: Ears: No tinnitus or hearing problem. Nose: No nasal discharge or epistaxis. Throat: No sore throat or mouth ulcers. Eyes: No diplopia or visual changes. RESPIRATORY: No shortness of breath. She has a dry cough. No expectoration or hemoptysis. CARDIOVASCULAR: No chest pain, orthopnea, or paroxysmal nocturnal dyspnea (PND). No edema. No palpitations. GASTROINTESTINAL: No nausea or vomiting. No diarrhea or constipation. No change in bowel movements. No heartburn or swallowing difficulties. No abdominal pain. No jaundice. No hematemesis, melena or rectal bleeding. GENITOURINARY: No hematuria or dysuria. MUSCULOSKELETAL: She has pain in the hands, feet, and hips. NEUROLOGICAL: She has tingling and numbness in the hands and feet. HEMATOLOGIC/LYMPHATIC: She is weak, tired, and fatigued. SKIN: No skin rash or lumps. PSYCHIATRIC: No anxiety or depression. PHYSICAL EXAMINATION GENERAL: Well-developed female in no acute distress. VITAL SIGNS: Blood pressure 169/86, pulse 71 per minute, respirations 16 per minute, temperature 97.3, pulse ox 99% on room air. HEENT: Head: Atraumatic. No sinus tenderness to palpation. Eyes: No icterus or conjunctivitis. Mouth and Throat: No oral thrush or mucositis. NECK: Supple. No cervical or supraclavicular lymphadenopathy. LUNGS: Clear to auscultation and percussion bilaterally. HEART: Regular rate and rhythm. No gallops, murmurs, clicks, or rubs. ABDOMEN: Soft and lax. No tenderness. No hepatosplenomegaly. No masses. EXTREMITIES: No cyanosis, clubbing, or edema. LYMPHATICS: No peripheral lymphadenopathy. NEUROLOGICAL: Conscious, alert, and oriented times three. No focal motor or sensory deficits. PSYCHIATRIC: Mood and affect appear normal. SKIN: No skin rash, bruise, or purpuric eruption. DIAGNOSTIC DATA Iron studies show serum iron 58, TIBC 270, iron saturation 21.5%, and ferritin 194. ASSESSMENT 1. Iron deficiency anemia secondary to malabsorption from gastric bypass surgery. Patient received iron supplementation in the past in the form of Ferrlecit, and she did fine with that and did not have a reaction. December 2016, she had INJECTAFER weekly for two weeks, but she developed pharyngeal obstruction with her treatment, but she had a very good response to her treatment also Her current iron studies are really very normal. Her ferritin currently is 194, and it was 233 last visit. I am planning to see her again in six months with CBC and iron studies with ferritin at that time. If the patient needs intravenous iron supplementation, I will use Ferrlecit rather than INJECTAFER. 2. Iron malabsorption due to gastric bypass surgery. 3. Hypertension, on treatment. 4. Rheumatoid arthritis since 2000. 5. Depression, on treatment. PLAN 1. Continue followup. 2. Patient to return in six months with CBC and iron studies with ferritin. 3. Patient to contact us for any new concern or complaints. KENDRA
== END 2018-07-31 ==
LOC: ONC 08:47
PROVIDERS: ATTEND Internal Medicine Hematology
DX: D50.9 Iron deficiency anemia, unspecified (principal); K91.2 Postsurgical malabsorption, not elsewhere classified; I10 Essential (primary) hypertension; M06.9 Rheumatoid arthritis, unspecified; F32.9 Major depressive disorder, single episode, unspecified; Z98.84 Bariatric surgery status
CPT/HCPCS: 82728; 83540; 83550; 99212

== ENCOUNTER 2018-05-31 08:56 | Outpatient (RCR) | payer MEDICARE, BC ==
[2018-03-07 09:11] VITALS: BP 120/69
[2018-03-07 09:24] LABS: PLATELET COUNT, AUTOMATED 217 K/uL (150-450)
[2018-03-07] MEDS: NS(*) 0.9% 100 ML BAG 100 ML IVPB PRN (10:08)
[2018-03-07] MEDS: LIDOCAINE/SOD BICARB 8.4% SYR ID PRN (10:08)
[2018-03-07 11:50] VITALS: BP 114/66
[2018-04-05 09:33] VITALS: BP 150/102
[2018-04-05 09:37] LABS: PLATELET COUNT, AUTOMATED 230 K/uL (150-450)
[2018-04-05] MEDS: LIDOCAINE/SOD BICARB 8.4% SYR ID PRN (09:49)
[2018-04-05] MEDS: NS(*) 0.9% 100 ML BAG 100 ML IVPB PRN (09:50)
[2018-04-05 11:06] VITALS: BP 149/93
[2018-05-03 09:17] LABS: PLATELET COUNT, AUTOMATED 185 K/uL (150-450)
[2018-05-03] MEDS: NS(*) 0.9% 100 ML BAG 100 ML IVPB PRN (10:07)
[2018-05-03 10:42] VITALS: BP 136/95
[~2018-05-31 08:56] MED LIST changes: +ABATACEPT 250 MG SDV 750 MG in NS(*) 0.9% 100 ML BAG 100 ML IVPB ONE; +DEXTROSE 5%(*) 100 ML BAG 100 ML IVPB PRN; +SITA25TA PO
[2018-05-31 08:58] VITALS: BP 146/73
[2018-05-31 09:39] LABS: PLATELET COUNT, AUTOMATED 205 K/uL (150-450)
[2018-05-31] MEDS ORDERED: ABATACEPT 250 MG SDV 750 MG in NS(*) 0.9% 100 ML BAG 100 ML IVPB ONE (09:40)
[2018-05-31] MEDS: NS(*) 0.9% 100 ML BAG 100 ML IVPB PRN (09:58)
[2018-05-31] MEDS: LIDOCAINE/SOD BICARB 8.4% SYR ID PRN (09:58)
[2018-05-31 10:42] VITALS: BP 134/77
== END 2018-06-05 ==
LOC: SPU 08:56
PROVIDERS: ATTEND Internal Medicine Rheumatology
DX: D64.9 Anemia, unspecified (principal); M05.741 Rheumatoid arthritis with rheumatoid factor of right hand without organ or systems involvement; M05.742 Rheumatoid arthritis with rheumatoid factor of left hand without organ or systems involvement
CPT/HCPCS: 36415; 82728; 83540; 83550; 85025; 96365; J0129; J7050; 82040; 82247; 82310; 82374; 82435; 82565; 82947; 84075; 84132; 84155; 84295; 84450; 84460; 84520

== ENCOUNTER → 2018-07-26 | Outpatient (CLI) | payer MEDICARE, BC ==
[~2018-07-26] MED LIST changes: -ABATACEPT 250 MG SDV 750 MG in NS(*) 0.9% 100 ML BAG 100 ML IVPB ONE; -DEXTROSE 5%(*) 100 ML BAG 100 ML IVPB PRN
== END ==
LOC: SPU 09:27
PROVIDERS: ATTEND Nurse Practitioner Family
DX: E78.5 Hyperlipidemia, unspecified (principal); E11.9 Type 2 diabetes mellitus without complications; I10 Essential (primary) hypertension
CPT/HCPCS: 36415; 82465; 83036; 83718; 84478

== ENCOUNTER 2018-09-20 12:53 | Outpatient (RCR) | payer MEDICARE, BC ==
[2018-06-28 08:57] VITALS: BP 117/84
[2018-06-28 09:25] LABS: PLATELET COUNT, AUTOMATED 203 K/uL (150-450)
[2018-06-28] MEDS: LIDOCAINE/SOD BICARB 8.4% SYR ID PRN (09:45)
[2018-06-28 10:11] VITALS: BP 127/75
[2018-06-28] MEDS: NS(*) 0.9% 100 ML BAG 100 ML IVPB PRN (10:13)
[2018-07-26 08:54] VITALS: BP 141/89
[2018-07-26] MEDS: NS(*) 0.9% 100 ML BAG 100 ML IVPB PRN (09:30)
[2018-07-26] MEDS: LIDOCAINE/SOD BICARB 8.4% SYR ID PRN (09:30)
[2018-07-26 09:41] LABS: PLATELET COUNT, AUTOMATED 205 K/uL (150-450)
[2018-08-23 09:01] VITALS: BP 103/53
[2018-08-23] MEDS: NS(*) 0.9% 100 ML BAG 100 ML IVPB PRN (09:05)
[2018-08-23 09:22] LABS: PLATELET COUNT, AUTOMATED 428 K/uL (150-450)
[2018-08-23] MEDS: LIDOCAINE/SOD BICARB 8.4% SYR ID PRN (09:39)
[2018-08-23 10:09] VITALS: BP 105/63
[~2018-09-20 12:53] MED LIST changes: +ABATACEPT 250 MG SDV 750 MG in NS(*) 0.9% 100 ML BAG 100 ML IVPB ONE; +DEXTROSE 5%(*) 100 ML BAG 100 ML IVPB PRN
[2018-09-20 13:19] VITALS: BP 137/86
[2018-09-20 13:36] LABS: PLATELET COUNT, AUTOMATED 228 K/uL (150-450)
[2018-09-20] MEDS: NS(*) 0.9% 100 ML BAG 100 ML IVPB PRN (13:56)
[2018-09-20] MEDS ORDERED: ABATACEPT 250 MG SDV 750 MG in NS(*) 0.9% 100 ML BAG 100 ML IVPB ONE (14:10)
== END 2018-09-25 ==
LOC: SPU 12:53
PROVIDERS: ATTEND Internal Medicine Rheumatology
DX: D64.9 Anemia, unspecified (principal); M05.741 Rheumatoid arthritis with rheumatoid factor of right hand without organ or systems involvement; M05.742 Rheumatoid arthritis with rheumatoid factor of left hand without organ or systems involvement
CPT/HCPCS: 36415; 83036; 85025; 96365; J0129; J7050; 82040; 82247; 82310; 82374; 82435; 82465; 82565; 82947; 83718; 84075; 84132; 84155; 84295; 84450; 84460; 84478; 84520

== ENCOUNTER 2018-11-08 08:30 | Outpatient (RCR) | payer MEDICARE, BC ==
[2018-11-07 09:15] VITALS: BP 175/89
[2018-11-07 10:48] LABS: PLATELET COUNT, AUTOMATED 176 K/uL (150-450)
[~2018-11-08 08:30] MED LIST changes: -ABATACEPT 250 MG SDV 750 MG in NS(*) 0.9% 100 ML BAG 100 ML IVPB ONE; +LIDOCAINE/SOD BICARB 8.4% SYR ID PRN; +NS(*) 0.9% 100 ML BAG 100 ML IVPB PRN
[2018-11-08 09:03] VITALS: BP 159/90
--- NOTE | 2018-11-08 10:05 | [facility] ONCOLOGY NOTE ---
EVENT DATE: November 08, 2018 DIAGNOSES 1. Iron deficiency anemia. 2. Iron malabsorption due to gastric bypass surgery. 3. Hypertension. 4. Rheumatoid arthritis. 5. Asthma. 6. Depression. CHIEF COMPLAINT The patient is here today for followup of her iron deficiency anemia due to iron malabsorption after gastric bypass surgery. HEMATOLOGY HISTORY Genie Montiel is a 63-year-old female with a history of rheumatoid arthritis and treatment with weekly methotrexate and Rituximab twice yearly. She also has a history of gastric bypass surgery done in 2000. Patient was found to have microcytic anemia. Her CBC on October 23, 2012, revealed normal white blood cell and platelets, but hemoglobin was 10.1 and hematocrit 32.7. MCV was 77.7. Her vitamin B12 level was high at 2576, and folate level was also high, more than 48. Serum ferritin was low at 6, serum iron was 32, and TIBC was 445 with iron saturation of 7.2%. Patient received intravenous iron supplement in the form of Ferrlecit 125 mg weekly for eight weeks with normalization of her iron studies. HISTORY OF PRESENT ILLNESS Patient is here today for followup of her iron deficiency due to malabsorption from gastric bypass surgery. Patient lost some weight, unintentional, and also lost appetite. She has occasional diarrhea, especially when she is eating raw food. She has generalized joint pain due to her rheumatoid arthritis. She has also neuropathy with tingling and numbness in her feet mainly. She is weak, tired and fatigued. PAST MEDICAL HISTORY 1. Hypertension. 2. Rheumatoid arthritis since 2000. 3. Anemia. 4. Asthma. PAST SURGICAL HISTORY 1. Gastric bypass surgery 2000. 2. Carpal tunnel release bilaterally. 3. Tonsillectomy as a child. 4. Left hand surgery. SOCIAL HISTORY Patient is with children. She is a retired cook, worked in a school. No abuse of drugs, alcohol, or tobacco. FAMILY HISTORY Father with colon cancer at age of 73. Mother had melanoma. CURRENT MEDICATIONS 1. Tramadol 50 mg one to two tablets every four to six hours p.r.n. for pain. 2. Methotrexate 60 gm injection once a week. 3. Prednisone 20 mg daily. 4. Bystolic 40 mg daily. 5. Multivitamins one tablet daily. 6. Vitamin D one capsule daily. 7. Loratadine 10 mg daily. 8. Doxazosin 2 mg daily. 9. Clonidine 0.1 mg four times daily. 10. Lasix 10 mg daily. 11. Salicylate 750 mg twice daily. 12. Calcium citrate 200 mg daily. 13. Folic acid 1 mg daily. 14. Effexor XR 225 mg orally daily. 15. Epinephrine 0.3 mg syringe pen injection p.r.n. 16. Elavil 75 mg daily. 17. Pred Forte eye drops twice daily. 18. Lasix 20 mg daily. 19. Metformin 1000 mg twice daily. 20. Orencia IV. ALLERGIES 1. AMOXICILLIN causes itch and rash. 2. BENICAR causes anaphylaxis. 3. LISINOPRIL causes anaphylaxis. 4. MORPHINE causes itch and rash. 5. NAPROXEN causes itch and rash. 6. SULFA causes itch and rash. 7. TYLENOL causes itch and rash. 8. ENBREL causes itch and rash. REVIEW OF SYSTEMS CONSTITUTIONAL: Patient has unintentional loss of weight due to loss of appetite. HEENT: Ears: No tinnitus or hearing problem. Nose: No nasal discharge or epistaxis. Throat: No sore throat or mouth ulcers. Eyes: No diplopia or visual changes. RESPIRATORY: No shortness of breath. She has a dry cough. No expectoration or hemoptysis. CARDIOVASCULAR: No chest pain, orthopnea, or paroxysmal nocturnal dyspnea (PND). No edema. No palpitations. GASTROINTESTINAL: She has occasional diarrhea, especially when she eats raw food. GENITOURINARY: No hematuria or dysuria. MUSCULOSKELETAL: She has generalized joint pain due to rheumatoid arthritis. NEUROLOGICAL: She has tingling and numbness in her feet. HEMATOLOGIC/LYMPHATIC: She is weak, tired and fatigued. SKIN: No skin rash or lumps. PSYCHIATRIC: No anxiety or depression. PHYSICAL EXAMINATION GENERAL: Well-developed female in no acute distress. VITAL SIGNS: Blood pressure 159/94, pulse 77 per minute, respirations 16 per minute, temperature 97.1, pulse ox 92% on room air. HEENT: Head: Atraumatic. No sinus tenderness to palpation. Eyes: No icterus or conjunctivitis. Mouth and Throat: No oral thrush or mucositis. NECK: Supple. No cervical or supraclavicular lymphadenopathy. LUNGS: Clear to auscultation and percussion bilaterally. HEART: Regular rate and rhythm. No gallops, murmurs, clicks, or rubs. ABDOMEN: Soft and lax. No tenderness. No hepatosplenomegaly. No masses. EXTREMITIES: No cyanosis, clubbing, or edema. LYMPHATICS: No peripheral lymphadenopathy. NEUROLOGICAL: Conscious, alert, and oriented times three. No focal motor or sensory deficits. PSYCHIATRIC: Mood and affect appear normal. SKIN: No skin rash, bruise, or purpuric eruption. DIAGNOSTIC DATA CBC showed white count 5.2, hemoglobin 10.4, hematocrit 31.5, platelets 176,000. Chem panel normal except BUN 19, blood sugar 169, AST 41, total protein 5.3, albumin 3.2 Iron studies are pending. ASSESSMENT 1. Iron deficiency anemia secondary to malabsorption from gastric bypass surgery. Patient received iron supplementation in the past in the form of Ferrlecit and she did fine with that without any reaction. December 2016, she had INJECTAFER weekly for two weeks but she developed pharyngeal obstruction with her treatment. Her iron studies currently are pending. I will consider checking soluble transferrin receptor assay if her ferritin is below 100 but within the normal range as the patient has rheumatoid arthritis, which can cause inflammatory anemia or anemia of chronic disease. If the patient would prove to have iron deficiency, I am planning to treat her with Ferrlecit weekly for eight weeks but if not I will see her again in six months with CBC, iron studies with ferritin. If the patient would prove to have iron deficiency, then I will see her in two months after her last dose of Ferrlecit with CBC, iron studies with ferritin. 2. Loss of appetite and weight. I am planning to send the patient to Dr. Kern for a screening colonoscopy. Patient is following her screening mammogram, too. 3. Iron malabsorption due to gastric bypass surgery. 4. Hypertension, on treatment. 5. Depression, on treatment. 6. Rheumatoid arthritis since 2000. PLAN 1. Await results of the iron studies today. 2. Consider Ferrlecit therapy weekly for eight weeks if patient proves to have iron deficiency. 3. If her ferritin is less than 100 but within the normal range, I am planning to check the soluble transferrin receptor assay. 4. Refer to Dr. Kern for colonoscopy. 5. Patient to return in six months if no evidence of iron deficiency or in two months after the last dose of Ferrlecit infusion with CBC, iron studies with ferritin. 6. Patient to contact us for any new concern or complaints. [facility]
[2018-12-14] MEDS ORDERED: SITA100T PO (13:38)
== END 2019-02-04 ==
LOC: SPU 08:30
PROVIDERS: ATTEND Internal Medicine Hematology
DX: D50.9 Iron deficiency anemia, unspecified (principal); K91.2 Postsurgical malabsorption, not elsewhere classified; I10 Essential (primary) hypertension; M06.9 Rheumatoid arthritis, unspecified; F32.9 Major depressive disorder, single episode, unspecified; Z98.84 Bariatric surgery status; Z79.899 Other long term (current) drug therapy
CPT/HCPCS: 36415; 82728; 83540; 83550; 85025; G0463; 82040; 82247; 82310; 82374; 82435; 82565; 82947; 84075; 84132; 84155; 84295; 84450; 84460; 84520; 99212

== ENCOUNTER → 2018-11-09 | Outpatient (CLI) | payer MEDICARE, BC ==
[~2018-11-09] MED LIST changes: -DEXTROSE 5%(*) 100 ML BAG 100 ML IVPB PRN; -LIDOCAINE/SOD BICARB 8.4% SYR ID PRN; -NS(*) 0.9% 100 ML BAG 100 ML IVPB PRN
--- NOTE | 2018-11-09 17:33 | EKG ---
FACILITY: [facility] PATIENT NAME: RONDA KOEHLER : [id number] MR: [id number] V: [id number] EXAM DATE: ORDERING PHYSICIAN: SARA SKY TECHNOLOGIST: PIERCE Test Reason : PRE OP CLEARANCE Blood Pressure : / mmHG Vent. Rate : 072 BPM Atrial Rate : 072 BPM P-R Int : 144 ms QRS Dur : 086 ms QT Int : 388 ms P-R-T Axes : 055 -21 015 degrees QTc Int : 424 ms Normal sinus rhythm Normal ECG When compared with ECG of 25-JUL-2017 12:31, Nonspecific T wave abnormality no longer evident in Anterior leads Confirmed by ELI OCHOA ([id number]) on 11/09/2018 7:00:32 PM Referred By: ASYA Confirmed By:ELI OCHOA
== END ==
LOC: RESP 16:12
PROVIDERS: ATTEND Surgery
DX: Z02.9 Encounter for administrative examinations, unspecified (principal)

== ENCOUNTER 2018-12-17 12:57 | Outpatient (RCR) | payer MEDICARE, BC ==
[2018-10-18 13:05] VITALS: BP 119/75
[2018-10-18] MEDS: LIDOCAINE/SOD BICARB 8.4% SYR ID PRN (13:23)
[2018-10-18] MEDS: NS(*) 0.9% 100 ML BAG 100 ML IVPB PRN (13:24)
[2018-10-18 13:27] LABS: PLATELET COUNT, AUTOMATED 188 K/uL (150-450)
[2018-10-18 14:20] VITALS: BP 121/63
[2018-11-15 13:11] VITALS: BP 153/85
[2018-11-15 13:26] LABS: PLATELET COUNT, AUTOMATED 226 K/uL (150-450)
--- NOTE | 2018-11-15 16:23 | NUR ---
Called and notified patient that per Dr. Gomes she does not need to receive iron infusions. She verbalized understanding.
[~2018-12-17 12:57] MED LIST changes: +ABATACEPT 250 MG SDV 750 MG in NS(*) 0.9% 100 ML BAG 100 ML IVPB ONE; +ABATACEPT IVPB ONE; +DEXTROSE 5%(*) 100 ML BAG 100 ML IVPB PRN; +NS 0.9% IVPB ONE; +SITA100T PO
[2018-12-17] MEDS: LIDOCAINE/SOD BICARB 8.4% SYR ID PRN (13:34)
[2018-12-17] MEDS: NS(*) 0.9% 100 ML BAG 100 ML IVPB PRN (13:35)
[2018-12-17 13:36] LABS: PLATELET COUNT, AUTOMATED 192 K/uL (150-450)
[2018-12-17 13:37] VITALS: BP 138/76
[2018-12-17] MEDS ORDERED: ABATACEPT 250 MG SDV 750 MG in NS(*) 0.9% 100 ML BAG 100 ML IVPB ONE (13:45)
[2018-12-17 14:11] VITALS: BP 147/80
[2019-01-14 13:28] VITALS: BP 126/74
[2019-01-14] MEDS: NS(*) 0.9% 100 ML BAG 100 ML IVPB PRN (13:30)
[2019-01-14] MEDS: LIDOCAINE/SOD BICARB 8.4% SYR ID PRN (13:30)
[2019-01-14] MEDS ORDERED: ABATACEPT 250 MG SDV 750 MG in NS(*) 0.9% 100 ML BAG 100 ML IVPB ONE (14:00)
== END 2019-01-15 ==
LOC: SPU 12:57
PROVIDERS: ATTEND Internal Medicine Rheumatology
DX: M05.741 Rheumatoid arthritis with rheumatoid factor of right hand without organ or systems involvement (principal); M05.742 Rheumatoid arthritis with rheumatoid factor of left hand without organ or systems involvement
CPT/HCPCS: 85025; 96365; J0129; J7050; 82040; 82247; 82310; 82374; 82435; 82565; 82947; 84075; 84132; 84155; 84295; 84450; 84460; 84520

== ENCOUNTER 2018-12-21 00:07 | Day surgery (SDC) | payer MEDICARE, BC ==
[~2018-12-21] VITALS: Ht 160 cm; Wt 48.1 kg
[2018-12-21] VITALS (10 sets, daily range): BP systolic 100–180; BP diastolic 45–94
[~2018-12-21 00:07] MED LIST changes: -ABATACEPT 250 MG SDV 750 MG in NS(*) 0.9% 100 ML BAG 100 ML IVPB ONE; -ABATACEPT IVPB ONE; -DEXTROSE 5%(*) 100 ML BAG 100 ML IVPB PRN; -NS 0.9% IVPB ONE
[2018-12-21] MEDS ORDERED: LIDOCAINE MPF 1% 5 ML VIAL ONE (07:11)
[2018-12-21] MEDS ORDERED: PROPOFOL EMUL(*) 10MG/ML 20 ML 60 ML ONE (07:11)
[2018-12-21] MEDS ORDERED: LIDOCAINE/SOD BICARB 8.4% SYR ID ONE (08:15)
[2018-12-21] MEDS ORDERED: NORMOSOL R SOLN(*) 1000 ML BAG 1,000 ML IV PRN (08:15)
--- NOTE | 2018-12-21 10:12 | Short(Outpt) Discharge Summary ---
Discharge Summary Reason for Hosp/Final Diag: (1) Anemia Hospital Course & Plan: pt presented for egd and colonoscopy. she tolerated the procedure well and will be discharged home when criteria met. Departure Discharge to: Home Discharge Instructions Home Meds Reported Medications Sitagliptin Phosphate (JANUVIA) 100 Mg Tablet, 100 MG PO QDAY 12/14/18 Ibandronate Sodium (IBANDRONATE SODIUM) 150 Mg Tablet, 150 MG PO Q30D 09/20/17 Oxycodone Hcl (OXYCODONE HCL) 5 Mg Tablet, 5 MG PO Q6H for pain, #49 08/01/17 Pantoprazole Sodium (PANTOPRAZOLE SODIUM) 20 Mg Tablet.dr, 20 MG PO BID, TAB.SR 07/28/17 Vitamin B Complex (VITAMIN B COMPLEX) 1 Each Capsule, 1 EACH PO DAILY, CAPSULE 06/14/15 Folic Acid (FOLIC ACID) 0.4 Mg Tablet, 600 MG PO 06/14/15 Epinephrine (EPIPEN 2-DI) 0.3 Mg/0.3 Ml Pen.injctr, 0.3 MG IM PRN 06/14/15 Clonidine Hcl (CLONIDINE HCL) 0.1 Mg Tablet, 0.1 MG PO QID, TAB 06/14/15 Furosemide (FUROSEMIDE) 20 Mg Tablet, 1 TAB PO DAILY, TAB 06/14/15 Prednisone 5 Mg Tab (PREDNISONE 5 MG TAB) 5 Mg Tablet, 5 MG PO BID 06/14/15 Abatacept (ORENCIA 250 MG VIAL) 250 Mg/Vial Injs, 250 MG IVPB Q MONTH for RHEUMATOID ARTHRITIS 05/29/15 Metformin Hcl (METFORMIN HCL) 1,000 Mg Tablet, 1 TAB PO BID, TAB 05/29/15 Methotrexate Sodium/Pf (METHOTREXATE 1 GM VIAL) 1 Gm Vial, 6 MG IJ QWK, VIAL 02/06/15 Nebivolol Hcl (BYSTOLIC) 20 Mg Tablet, 20 MG PO BID 02/06/15 Multivitamin (MULTI-VITAMIN DAILY) 1 Each Tablet, 1 EACH PO DAILY 10/03/14 Doxazosin Mesylate (DOXAZOSIN MESYLATE) 1 Mg Tablet, 2 MG PO QDAY 10/03/14 Calcium Citrate (Calcium Citrate) 200 Mg Tablet, 200 MG PO DAILY, 0 Refills 04/22/09 Venlafaxine Hcl (Effexor Xr) 150 Mg Cap.sr.24h, 225 MG PO QDAY, 0 Refills 04/22/09 Amitriptyline Hcl (Elavil) 75 Mg Tablet, 75 MG PO DAILY, 0 Refills 04/22/09 Discontinued Reported Medications Sitagliptin Phosphate (JANUVIA) 25 Mg Tablet, 25 MG PO QDAY 05/11/18 Docusate Calcium (SURFAK) 240 Mg Capsule, 240 MG PO QDAY, #9 CAPSULE 08/01/17 Diet: Regular Activity: As Tolerated Special Instructions: we will call you in 10 days with results. SARA SKY Dec 21, 2018 10:12
== END 2018-12-21 11:45 | disposition home or self-care (01) ==
LOC: OR 00:07
PROVIDERS: ATTEND Surgery
DX: K62.1 Rectal polyp (principal); K20.9 Esophagitis, unspecified; E11.9 Type 2 diabetes mellitus without complications
CPT/HCPCS: 00813; 36416; 43239; 43249; 45385; 82948; 88305; 88313; 88342; C1726; J2001; J2704

== ENCOUNTER → 2019-01-14 | Outpatient (CLI) | payer MEDICARE, BC ==
[2019-01-14 13:44] LABS: PLATELET COUNT, AUTOMATED 189 K/uL (150-450)
== END ==
LOC: SPU 08:46
PROVIDERS: ATTEND Nurse Practitioner Family
DX: E11.9 Type 2 diabetes mellitus without complications (principal); I10 Essential (primary) hypertension; E78.5 Hyperlipidemia, unspecified; K21.9 Gastro-esophageal reflux disease without esophagitis
CPT/HCPCS: 36415; 82040; 82247; 82310; 82374; 82435; 82465; 82565; 82947; 83036; 83718; 84075; 84132; 84155; 84295; 84450; 84460; 84478; 84520; 85025

== ENCOUNTER 2019-02-08 16:23 | Outpatient (RCR) | payer MEDICARE, BC ==
[~2019-02-08 16:23] MED LIST changes: +DEXTROSE 5%(*) 100 ML BAG 100 ML IVPB PRN; +LIDOCAINE/SOD BICARB 8.4% SYR ID PRN; +NS(*) 0.9% 100 ML BAG 100 ML IVPB PRN
== END 2019-02-11 17:23 | disposition home or self-care (01) ==
LOC: SPU 16:23
PROVIDERS: ATTEND Internal Medicine Hematology
DX: D64.9 Anemia, unspecified (principal)